=== PATIENT | male | born 1995 | race Caucasian/White ===

== ENCOUNTER 2021-01-24 00:05 | Emergency (ER) | payer OTHER, SELFPAY ==
--- NOTE | ~2021-01-24 | XR_ITS ---
EXAMINATION: XR HAND, LEFT CLINICAL INFORMATION: Crush injury COMPARISON: 05/15/2014 TECHNIQUE: 3 views of the left hand. FINDINGS: Osseous alignment is anatomic. No acute fracture is seen. No significant focal soft tissue abnormality identified. XR/XR hand wrist LT IMPRESSION: No acute findings identified.
[2021-01-24 00:45] VITALS: BP 119/68; PULSE 67; RESP 16; TEMP 37; O2SAT 99; BMI 26.9
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
== END 2021-01-24 01:56 | disposition home or self-care (01) ==
PROVIDERS: Emergency Provider Emergency Medicine; PCP Internal Medicine
DX: S67.22XA Crushing injury of left hand, initial encounter (principal); M79.642 Pain in left hand; M25.532 Pain in left wrist; Y29.XXXA Contact with blunt object, undetermined intent, initial encounter; Y93.9 Activity, unspecified; Y92.9 Unspecified place or not applicable; Y99.0 Civilian activity done for income or pay
CPT/HCPCS: 73110; 73130; 99283

== ENCOUNTER → 2021-01-27 11:34 | Outpatient (BNVA) | payer OTHER, SELFPAY | PROVIDERS: PCP Internal Medicine; Visit Provider Physician Assistant | DX: S60.212A Contusion of left wrist, initial encounter (principal); V89.0XXA Person injured in unspecified motor-vehicle accident, nontraffic, initial encounter | CPT/HCPCS: 73110; 99203 ==

== ENCOUNTER → 2021-01-30 08:44 | Outpatient (BNVA) | payer OTHER, SELFPAY | PROVIDERS: PCP Internal Medicine; Visit Provider Physician Assistant Medical | DX: S60.212A Contusion of left wrist, initial encounter (principal); V89.2XXA Person injured in unspecified motor-vehicle accident, traffic, initial encounter | CPT/HCPCS: 99213 ==

== ENCOUNTER 2023-08-07 10:33 | Emergency (ER) | payer OTHER, SELFPAY ==
--- NOTE | ~2023-08-07 | XR_ITS ---
EXAMINATION: XR KNEE, RIGHT CLINICAL INFORMATION: Fall COMPARISON: None available. TECHNIQUE: Four views of the right knee. FINDINGS: No fracture or joint effusion. Alignment is anatomic. Joint spaces are maintained. No abnormal soft tissue calcification. XR/XR knee RT 3V IMPRESSION: Normal right knee.
[2023-08-07 10:40] VITALS: BP 143/98; PULSE 78; RESP 16; TEMP 36.6; O2SAT 96; BMI 29.4
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
[2023-08-07 11:18] LABS: MANUAL DIFF FLAG NO
[2023-08-07 11:20] LABS: Basophils Percent Auto 0.6 % (0-2); Eosinophils Absolute Auto 0.2 X10*3/uL (0.0-0.4); Eosinophils Percent Auto 2.2 % (0-4); Hematocrit 46.1 % (42.0-52.0); Hemoglobin 16.5 g/dl (14.0-18.0); Imm Gran Abs Auto 0.01 X10*3/uL (0.00-0.03); Imm Gran Pct Auto 0.1 % (0.0-0.4); Lymphocytes Absolute Auto 1.3 X10*3/uL (1.2-4.9); Lymphocytes Percent Auto 18.4 % (20-40); Mean Corpuscular HGB Conc 35.8 g/dl (31.0-36.0); Mean Corpuscular Hemoglobin 29.6 pg (27.0-33.0); Mean Corpuscular Volume 82.8 fL (80.0-98.0); Monocytes Absolute Auto 0.5 X10*3/uL (0.1-1.2); Monocytes Percent Auto 7.1 % (2-11); Neutrophils Absolute Auto 5.2 x10*3/uL (2.0-8.3); Neutrophils Percent Auto 71.6 % (45-73); Platelet Count 190 X10*3/uL (160-400); Red Blood Count 5.57 X10*6/uL (4.60-5.80); Red Cell Distribution Width 12.9 % (11.0-16.0); White Blood Count 7.2 X10*3/uL (4.8-10.8)
[2023-08-07 11:45] LABS: Alanine Aminotransferase 40 U/L (0-40); Albumin Level 4.7 g/dL (3.5-5.0); Alkaline Phosphatase 55 U/L (39-117); Anion Gap 15 (12-20); Aspartate Amino Transferase 33 U/L (5-37); Bilirubin Direct 0.3 mg/dL (0.0-0.5); Bilirubin Total 0.7 mg/dL (0.0-1.0); Blood Urea Nitrogen 13 mg/dL (9-16); Calcium 9.4 mg/dL (8.4-10.2); Carbon Dioxide 21 mmol/L (22-29); Chloride 109 mmol/L (96-108); Creatinine Clr Calc Pharmacy 169.3; Estimated Glomerular Filt Rate > 60; Glucose Random 97 mg/dL (60-115); Sodium 141 mmol/L (135-145); Total Protein 7.5 g/dL (6.5-8.0)
[2023-08-07] MEDS: Bacitracin Oint 0.9 GM PACKET 1 APPL TOPICAL (11:47)
[2023-08-07 12:06] LABS: HBS Num1 4.72 mIU/mL (0-7.99); HBc Num1 0.07 S/CO (0.00-0.79); HBsAGNum1 0.45 S/CO (0.00-0.99); HIV AB/AG Nonreactive (Nonreactive); HIV Num 1 0.05 S/CO (0.00-0.99); Hepatitis B Core Antibody Nonreactive (Nonreactive); Hepatitis B Surface Antigen Negative (Negative); ~HepC Num1 0.05 S/CO (0.00-0.79); ~Hepatitis B Surface Antibody NONREACTIVE (Nonreactive); ~Hepatitis C Antibody Nonreactive (Nonreactive)
== END 2023-08-07 12:10 | disposition home or self-care (01) ==
PROVIDERS: Physician Assistant; Emergency Provider Student in an Organized Health Care Education/Training Program; PCP Internal Medicine
DX: S89.91XA Unspecified injury of right lower leg, initial encounter (principal); S60.511A Abrasion of right hand, initial encounter; Y35.891A Legal intervention involving other specified means, law enforcement official injured, initial encounter; Y93.89 Activity, other specified; Y92.239 Unspecified place in hospital as the place of occurrence of the external cause; Y99.0 Civilian activity done for income or pay
CPT/HCPCS: 36415; 73562; 80048; 80076; 85025; 86704; 86706; 86803; 87340; 87389; 99282; 99283

== ENCOUNTER → 2023-08-09 07:56 | Outpatient (BNVA) | payer OTHER, SELFPAY | PROVIDERS: PCP Internal Medicine; Visit Provider Internal Medicine | DX: S83.91XA Sprain of unspecified site of right knee, initial encounter (principal); S83.92XA Sprain of unspecified site of left knee, initial encounter; S60.512A Abrasion of left hand, initial encounter; S60.511A Abrasion of right hand, initial encounter; W01.0XXA Fall on same level from slipping, tripping and stumbling without subsequent striking against object, initial encounter | CPT/HCPCS: 99203 ==

== ENCOUNTER → 2023-08-13 10:06 | Outpatient (BNVA) | payer OTHER, SELFPAY | PROVIDERS: PCP Internal Medicine; Visit Provider Internal Medicine | DX: S80.211A Abrasion, right knee, initial encounter (principal); S80.212A Abrasion, left knee, initial encounter; Y35.811A Legal intervention involving manhandling, law enforcement official injured, initial encounter | CPT/HCPCS: 99213 ==

== ENCOUNTER → 2023-08-20 10:12 | Outpatient (BNVA) | payer OTHER, SELFPAY | PROVIDERS: PCP Internal Medicine; Visit Provider Internal Medicine | DX: S80.01XA Contusion of right knee, initial encounter (principal); S80.02XA Contusion of left knee, initial encounter; W01.0XXA Fall on same level from slipping, tripping and stumbling without subsequent striking against object, initial encounter | CPT/HCPCS: 99213 ==

== ENCOUNTER 2024-11-04 08:17 | Emergency (ER) | payer OTHER, SELFPAY ==
--- NOTE | ~2024-11-04 | XR_ITS ---
CLINICAL HISTORY: trauma pain 4 views cervical spine Comparison: None Findings: No fractures or listhesis. Odontoid and lateral masses intact. Normal facets Disc spaces are maintained. Unicinate and transverse processes intact. Lordotic curvature is straightened Normal bone mineralization. No widening of the retropharyngeal soft tissues. Lung apices unremarkable. Impression: 1. No fractures or listhesis. 2. Straightened cervical lordosis. This document has been electronically signed by: James Camacho MD on 11/04/2024 10:20:54
[2024-11-04 08:20] VITALS: BP 148/100; PULSE 68; RESP 18; TEMP 36.3; O2SAT 96; BMI 33.7
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
--- OUTSIDE RECORDS SUMMARY | 2024-11-04 08:33 | XMS_ITS | Encounter Summary ---
Author Organization [facility] Address [address] [place] [id number] Phone Care Team Providers Care Residential Instructor Name Role Phone Aldo Hawthorne MD Primary Care Provider [phone] Encounter Details Date Type Department Care Team (Late st Contact Info) Description 03/27/2011 Documentation EM Family Medicine [address] [place] [address] Family Medicine, Physician [address] [place], [place] [id number] Social History Tobacco Use Types Packs/Day Years Used Date Smoking Tobacco: Never Assessed Sex and Gender Information Value Date Recorded Sex Assigned at Not on file Legal Sex Male 4:50 PM EDT Gender Identity Not on file Sexual Orientation Not on file documented as of this encounter Plan of Treatment Not on file documented as of this encounter Visit Diagnoses Not on filedocumented in this encounter Care Teams Residential Instructor Relationship Specialty Start Date End Date Aldo Hawthorne MD [address] [place] [address] JOVANA Rodriguez [id number] PCP - General 02/12/17 10/13/22 documented as of this encounter
--- OUTSIDE RECORDS SUMMARY | 2024-11-04 08:33 | XMS_ITS ---
Author Organization [facility] Address [address] [place] [address] Care Team Providers Care Job Analysis Manager Name Role Phone Sal Huitron MD Primary Care Provider Vinnie Brooks Unavailable [phone] Allergies No Known Allergies REASON FOR VISIT Ingrown nail, Foot pain Medications Medication SIG (Take, Route, Fr equency, Duration) Notes Start Date End Date Status Azithromycin 250 MG [address] day, then 1 tablet daily for 4 days Orally Once a day for 5 day(s) 12/20/2013 Not-Taking Vicodin 5-300 MG 1-2 tablet as needed Orally every 6 hrs as needed for pain for 5 days 01/10/2015 Not-Taking Medical From: . . . Medical from wor k 02/17, 02/18, 02/19, and 02/20 due to minor foot surgery for 4 days 02/18/2024 Active Social History Tobacco Use: Social History Observation Description Date Details (start date - stop date) Never Smoker NA - NA Tobacco Use/Smoking Question Answer Notes Are you a: nonsmoker Additional Findings: Tobacco Non-User Current no n-smoker Alcohol Screen Question Answer Notes Did you have a drink contain ing alcohol in the past year? Yes How often did you have a dri nk containing alcohol in the past year? 2 to 3 times a week (3 points) Points 3 Interpretation Negative Tobacco use other than smoking: Question Answer Notes Are you an other tobacco user? No Vital Signs Height 6ft 2in in 02/18/2024 Weight 230 lbs 02/18/2024 BMI 29.53 kg/m2 02/18/2024 Procedures Procedure Date Ordered Date Performed Result Body Sit e 17596-[id number] 02/18/2024 N/A Encounters Encounter Location Date Provider Diagnosis [facility] [address] [place] [address] 02/18/2024 Vinnie Mckeon Ingrown nail L60.0 ; Pain in left foot M79.672 ; Pain in left ankle and joints of left foot M25.572 ; Bursitis of left foot M77.52 and Tailor's bunion of left foot M21.622 Assessments Encounter Date Diagnosis (ICD Code) Assessment Notes Treatment Notes Treatment Clinical Notes Section Notes 02/18/2024 Ingrown nail (ICD-10 - L60.0) 02/18/2024 Pain in left foot (ICD-10 - M79.672) 02/18/2024 Pain in left ankle and joints of left foot (ICD-10 - M25.572) 02/18/2024 Bursitis of left foot (ICD-10 - M77.52) 02/18/2024 Tailor's bunion of left foot (ICD-10 - M21.622) Plan Of Treatment Medication Medication Name Sig Start Date Stop Date Notes Medical From: . . . Medical from [facility] 02/17, 02/18, 02/19, and 02/20 due to minor foot surgery for 4 days 02/18/2024 Pending Test Test Name Order Date [id number] 02/18/2024 Next Appt Details Follow Up: 2-4 Weeks, Reason : Procedure Notes * Category Sub-Category Detail Notes Matricectomy (OP NOTE) Consent The patie nt was brought to the examination room and placed on the table in a supine position. The pre/uli/postoperative course, risks, complications and alternatives were discussed, understood and accepted by the patient. No guarantees were given regarding the surgical outcome Procedure A digital prep with alcohol or betadine was performed. 3cc of 1 percent Xylocaine Plain local anesthetic was administered to the toe via digital block utilizing aseptic technique. A digital touriquet was applied. The affected toenail portion was undermined, incised and resected to the eponychium and matrix. It was noted to be significantly incurvated and hypertrophied. The nailbed and matrix were curetted and the nail groove, bed and matrix were cauterized with Phenol, 3 applications of 30 seconds each from a cotton tip applicator, no underling bone was identified. The surrounding skin was protected from the Phenol with Bacitracin ointment. The tourniquet was released and capillary fill time was intact to the digit. A sterile Bacitracin dressing was applied Disposition Disposition: The pat ient tolerated the procedure and anesthesia well and left in good condition, alert, oriented and stable in no acute distress. Local wound care instructions were discussed and dispensed. There were no complications and the prognosis is favorable, Recommended alternating/staggering Tylenol XS 2 tabs and Motrin 600mg q 6 hrs ea for discomfort, Rx narcotic postop pain meds were deferred Location Lateral nail border , TA Progress Notes * Eliseo OROSCO EDOB:1995 (28 yo M)Acc No.[id number]:02/18/2024 Progress Notes Patient:?Eliseo Orosco Provider:?Vinnie Mckeon DPM :1995???Age:28 Y???Sex:Male Al e:02/18/2024 Address:[address] [place], [place] [id number] Pcp:Sal Huitron MD Subjective: * Chief Complaints: * ???Ingrown nailFoot pain * HPI: ???Foot Pain:?Location:?Outside, Bottom, Forefoot, LEFT.?Duration:?several weeks.?Course:?worse.?Aggravated:?any pressure, standing, walking.?Treatments:?rest/alter normal daily activity.? * ROS:?General/Constitutional:?Nausea?denies.?Vomiting?denies.?Hunger Thirst?denies.?Loss appetite?denies.?Chills?denies.?Fatigue?denies.?Fever?denies.?Night Sweats?denies.?Unexplained weight loss?denies.?Unexplained weight gain?denies.?HEENTM:?Dentures?denies.?Dizziness?denies.?Glasses/contacts?denies.?Retinopathy?de nies.?Blurred/double vision?denies.?TMJ?denies.?Discharge/drainage?denies.?Implants?denies.?Sore throat?denies.?Dental implants?denies.?Hard of hearing ?denies.?Difficulty chewing/swallowing/speaking?denies.?Nose bleeds?denies.?Sore mouth?denies.?Respiratory:?On Oxygen?denies.?Pneumonia/pleurisy?denies.?Bronchitis?denies.?Emphysema?denies.?C oughing?denies.?Cough blood?denies.?Shortness of breath?denies.?Wheezing?denies.?Cardiovascular:?Pacemaker?denies.?MVP?denies.?WPW?denies.?CHF?denies.?Heart attack?denies.?Septal defect?denies.?Rapid beat?denies.?Chest pain ?denies.?Atrial Fib.?denies.?Murmur/Palpitations?denies.?Gastrointestinal:?Hemorrhoids?denies.?Stomach/Abdominal pain?denies.?Dark blood stool?denies.?Irritable bowel ?denies.?Constipation?denies.?Diarrhea?denies.?Hematology:?Swelling?denies.?Clots?denies.?Varicose Veins?denies.?Bruising?denies.?Bleeding problem?denies.?Genitourinary:?Blood urine?denies.?Frequent/Painfu/urination/bladder control?denies.?Kidney stones?denies.?Infection (UTI)?denies.?Nephropathy?denies.?sex trans dis (STD)?denies.?Prostate?denies.?Musculoskeletal:?Hammertoes?denies.?Bunions?denies.?Back Pain?denies.?Muscle Cramps/ Resting?denies.?Muscle cramps / walking?denies.?Generalized aches and pains?denies.?Weakness?denies.?Integ.:?Glez?denies.?Scars?denies.?Corns/calluses?denies.?Ingrown nails?admits.?Painful nails?denies.?Open Sores?denies.?Rashes?denies.?Neurologic:?Difficulty sleeping?denies.?Brain disorder?denies.?Numbness?denies.?Balance trouble?denies.?Confusion?denies.?Fainting/blackouts?denies.?Tingling?denies.?Tr emors?denies.? * Medical History:? * Surgical History:?Denies Pas t Surgical History * Hospitalization/Major Diagno stic Procedure:?Denies Past Hospitalization * Family History:?Mother: aliv e, poor circulation, cancer, diagnosed with Other malignant neoplasm of unspecified site, Other specified conditions influencing health status.?Father: alive, cancer, diagnosed with Other malignant neoplasm of unspecified site.?Paternal Grand Mother: cancer, diagnosed with Other malignant neoplasm of unspecified site.?Maternal Grand Mother: heart attack, diagnosed with Unspecified heart disease.?Maternal Grand Father: heart attack, diagnosed with Unspecified heart disease.?Maternal aunt: cancer.?Maternal uncle: heart attack.? No children. * Social History:?Tobacco Use:?Tobacco Use/Smoking?Are you a:?nonsmoker ?Additional Findings: Tobacco Non-User?Current non-smoker ?Tobacco use other than smoking?Are you an other tobacco user??No ???Drugs/Alcohol:?Drugs?Have you used drugs other than those for medical reasons in the past 12 months??No ?Alcohol Screen?Did you have a drink containing alcohol in the past year??Yes ?How often did you have a drink containing alcohol in the past year??2 to 3 times a week (3 points) ?Points?3 ?Interpretation?Negative ???Miscellaneous:?Caffeine: yes, 1-2 cups per day. ?no Children. ?Exercise: yes, running, golf. ?Marital status: . 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 * Medications:?Not-Taking/PRNV icodin 5-300 MG Tablet 1-2 tablet as needed Orally every 6 hrs as needed for painAzithromycin 250 MG Tablet 2 tablets on the first day, then 1 tablet daily for 4 days Orally Once a dayMedication List reviewed and reconciled with the patientNot-Taking/PRN Vicodin 5-300 MG Tablet 1-2 tablet as needed Orally every 6 hrs as needed for painNot-Taking/PRN Azithromycin 250 MG Tablet 2 tablets on the first day, then 1 tablet daily for 4 days Orally Once a dayMedication List reviewed and reconciled with the patient * Allergies:?N.K.D.A.yes[Aller gies Verified] Objective: * Vitals:?Ht: 6ft 2in, Wt:230, BMI:29.53, Shoe size: 11, Ht-cm: 187.96 cm, Wt-k.33 kg. * Examination: ???Ingrown Nail: ?INSPECTION:?Reveals incurvation, pain on palpation, groove hypertrophy , Lateral nail border , TA.?Orthopedic: ?MUSCLE STRENGTH:?5/5 all groups in a symmetrical fashion , B/L.?TAILOR'S BUNION:?Prominent, painful, with?inflammation present,?5th MTH/MPJ, LEFT.?Neurological: ?SENSORY:?Neurological exam reveals intact sensorium, pain sensation normal, vibration sensation intact, pinprick sensation is normal in the lower extremities, Pt denies, anesthesia, burning, paresthesia, tingling, B/L.?TINEL'S COMPRESSION:? Negative, Lateral sural nerve distribution, Left.?DEEP TENDON REFLEXES:?Achilles, 2/4, B/L.?Neuroma Pain: ?PALPATION:?No interspace pain noted on palpation.?General Examination: ?GENERAL APPEARANCE:?Reveals a pleasant, alert, well-nourished, well- developed, well hydrated individual, who demonstrates proper attention to hygiene/body habitus, and is in no acute distress, Pt serves as own?historian for office visit today.?ORIENTED:?person, place, and time.?Vascular: ?DP PULSES:?3/4, B/L.?PT PULSES:?3/4, B/L.?CAPILLARY FILL TIME:?immediate, all digits, B/L.?SKIN TEMPERTURE GRADIENT OF THE LOWER EXTERMITIES:?warm to cool, proximal to distal, B/L.?HAIR GROWTH/TEXTURE/ELASTICITY/TURGOR:?normal, B/L.?PIGMENTATION:?normal, B/L.?EDEMA:?absent, B/L.?Dermatologic: ?SKIN FINDINGS:?Skin exam reveals normal texture, elasticity, and turgor. There are no masses. The interspaces are clear.? Assessment: * Assessment: 1.?Pain in left foot - M79.6 72?2.?Ingrown nail - L60.0 (Primary), Lateral nail border , TA?3.?Pain in left ankle and joints of left foot - M25.572?4.?Bursitis of left foot - M77.52?5.?Tailor's bunion of left foot - M21.622, Acute problem, Uncomplicated (3)? Plan: * Treatment: 2.?Others? Start Medical From: ., ., ., ., Medical from work 02/17, 02/18, 02/19, and 02/20 due to minor foot surgery, 4 days, 1, Refills 0.?? * Procedures:?Matricectomy (OP NOTE):?Location?Lateral nail border?,?TA.?Consent?The patient was brought to the examination room and placed on the table in a supine position. The pre/uli/postoperative course, risks, complications and alternatives were discussed, understood and accepted by the patient. No guarantees were given regarding the surgical outcome.?Procedure?A digital prep with alcohol or betadine was performed. 3cc of 1 percent ?Xylocaine Plain local anesthetic was administered to the toe via digital block utilizing aseptic technique. A digital touriquet was applied. The affected toenail portion was undermined, incised and resected to the eponychium and matrix. It was noted to be significantly incurvated and hypertrophied. The nailbed and matrix were curetted and the nail groove, bed and matrix were cauterized with Phenol, 3 applications of 30 seconds each from a cotton tip applicator, no underling bone was identified. The surrounding skin was protected from the Phenol with Bacitracin ointment. The tourniquet was released and capillary fill time was intact to the digit. A sterile Bacitracin dressing was applied .?Disposition?Disposition: The patient tolerated the procedure and anesthesia well and left in good condition, alert, oriented and stable in no acute distress. Local wound care instructions were discussed and dispensed. There were no complications and the prognosis is favorable, Recommended alternating/staggering Tylenol XS 2 tabs and Motrin 600mg q 6 hrs ea for discomfort, Rx narcotic postop pain meds were deferred.? * Procedure Codes:?00954 REMOV AL OF NAIL BED, Modifiers: TA * Preventive Medicine:? ??Counseling:?Discussion:?-03: Office or other outpatient visit for the evaluation and management of a new patient, which required a medically appropriate history and/or examination and LOW level of DECISION MAKING for: 1 STABLE ACUTE UNCOMPLICATED PROBLEM, 2 OR MORE MINOR PROBLEMS, OR 1 STABLE CHRONIC PROBLEM, THAT POSE(S) A LOW RISK FOR MORBIDITY/MORTALITY. The visit on the day of the encounter encompassed interpreting the data and educating the patient as to the nature of their condition, treatment options available according to their individual PMH, meds, allergies, and overall health/living conditions, as well as any potential risks or complications that may occur from a failure to adhere to, and participate in, the recommended course of therapy. The discussion included a complete verbal, and/or written explanation of the examination results, any x-rays taken, the proposed diagnosis, and outline of the treatment plan. A schedule for future care needs was also explained. The patient verbalized an understanding of the instructions at this time and agreed to be an active participant in their treatment. If the patient should think of any questions or concerns after the visit, I have encouraged the patient to call the office.?Metatarsalgea:?I explained to the patient the possible etiologies of their Metatarsalgea Foot pain, including foot type/shoegear/activity level/exercise routine and the risks/benefits of all the different treatment options for pain including: No treatment at all, Rest, Ice, NSAIDs(only if well tolerated after meals), New/supportive Shoegear, Strappings and Tapings, Foot/Ankle AFO Bracing, Stretching exercises, Deep Tissue Massage, Arch support/shoe inserts, Custom orthoses, Topical analgesics including Aspercream/Voltaren gel, Physical Therapy, Cortisone injection therapy, EPAT/ESWT. Advantages and disadvantages of each option were discussed and the patients questions re: shoegear, custom vs prefabricated inserts, activity level, PO vs Topical medications (and their respective potential complications/drug interactions/side effects), and consistency in home treatment regimens for optimal success were answered to their verbally confirmed satisfaction.?Orthotics:?I explained to the patient the benefits of OT use. I explained that orthoses are medically necessary to decrease the foot pain through proper mechanical control, support of their foot, cushion the forefoot by supplementing the soft tissue, possibly delay of the progression of the Tailor bunion deformity, possibly prevent surgery.?P.R.I.C.E.:?The patient was counseled on the use of P.R.I.C.E. and NSAIDS (if well tolerated) to aid in the recovery from their painful condition.?Podiatric Surgery Counseling:?Surgical procedures to treat the patients foot problem were discussed. We reviewed the risks of the procedure (described below) vs not having the procedure (persistent pain, deformity, risk for skin ulceration/infection, loss of toe). We discussed the potential procedure complications including, but not limited to: pain, swelling, bleeding, scarring, numbness, infection, delayed/non healing, floppy/unstable/shorthened toe, recurrence, failure of the procedure, overcorrection leading to plantarflexed/downward positioned toe, recurrence, need for further surgery, as well as the possibility for loss of the toe itself. We discussed the use of IV/Local anesthesia, and the usual post-op course for healing. No guarentees were given. The patient verbally indicated a full understanding of the above conversation, and any other of their questions were answered to their satisfaction.?Shoe Gear Counseling:?The patient and I reviewed the types of shoes they should be wearing. My recommendation included obtaining a well-fitted shoe with a good supportive, non-foldable nor twistable sole, plenty of toe/room for the forefoot, and proper arch support. Based on todays examination, I recommended the patient look for new shoes, by having their feet professionally measured. We discussed that generally the best time of the day for a shoe fitting is the afternoon. Different shoes types and brands to best match the patients occupation and vocation were discussed. Specific brand selection will be up to the patient, their individual foot condition/deformities, and fit. The patient and I reviewed the standard new shoe break in period by wearing them for a few hours a day while checking for redness or sores as wear time is increased. The patient verbally confirmed to understanding the information discussed.? * Follow Up:?2-4 Weeks * Images: * Sign off status: Completed true * Provider:?Vinnie Mckeon DPM Date:?2023 Generated for Sidney cheney/Anamaria/Eliot on:?11/04/2024 08:32 AM EDT History and Physical Notes * HPI (History of Present Illness) Category Sub-Category Detail Notes Category Not es Foot Pain Location: Outside, Bottom, Forefoot, L EFT Duration: several weeks Course: worse Aggravated: any pressure, standi ng, walking Treatments: rest/alter normal da sandra activity Examination Category Sub-Category Detail Notes Category Not es Ingrown Nail INSPECTION: Reveals incurvat ion, pain on palpation, groove hypertrophy , Lateral nail border , TA Neuroma Pain PALPATION: No interspace pain noted on palpation Neurological SENSORY: Neurological exa m reveals intact sensorium, pain sensation normal, vibration sensation intact, pinprick sensation is normal in the lower extremities, Pt denies, anesthesia, burning, paresthesia, tingling, B/L TINEL'S COMPRESSION: Negative, Lateral s ural nerve distribution, Left DEEP TENDON REFLEXES: Achilles, 2/4, B/L Dermatologic SKIN FINDINGS: Skin exam reveal s normal texture, elasticity, and turgor. There are no masses. The interspaces are clear Orthopedic TAILOR'S BUNION: Prominent, pain ful, with inflammation present, 5th MTH/MPJ, LEFT MUSCLE STRENGTH: 5/5 all groups in a symmetrical fashion , B/L General Examination GENERAL APPEARANCE: Reveals a pleasant, alert, well- nourished, well-developed, well hydrated individual, who demonstrates proper attention to hygiene/body habitus, and is in no acute distress, Pt serves as own historian for office visit today ORIENTED: person, place, and t janey Vascular DP PULSES (B): 3/4, B/L PT PULSES (B): 3/4, B/L CAPILLARY FILL TIME: immediate, all digi ts, B/L TEMPERTURE GRADIENT (C): warm to cool, p roximal to distal, B/L TROPHIC CONDITION-TEXTURE/ELASTICITY/TURGOR/HAIR GROWTH (B): normal, B/L EDEMA (C): absent, B/L PIGMENTATION: normal, B/L
--- OUTSIDE RECORDS SUMMARY | 2024-11-04 08:33 | XMS_ITS | Patient Health Record ---
Author Organization [facility] Address [address] [place] [address] Care Team Providers Care Air Export Operations Agent Name Role Phone Sal Huitron MD Primary Care Provider Vinnie Brooks Unavailable [phone] Allergies No Known Allergies Reason For Referral Diagnosis 1 Ingrowing nail (L60. 0) Diagnosis 2 Ulcer of Other Part of Foot (707.15) Diagnosis 3 Celluitis - Toes (68 1.10) Diagnosis 4 Paronychia (681.11) Diagnosis 5 Ulcer of Other Part of Foot (707.15) Diagnosis 6 Paronychia (681.11) Diagnosis 7 Celluitis - Toes (68 1.10) Diagnosis 8 Ingrowing nail (L60. 0) Referring Provider First Name Sal Referring Provider Last Name Elana [facility] Referred Provider Afshan Geronimo Referred Address [address] [facility],[place],[address], Referred Provider Specialty Podiatry Referral Priority Routine Diagnosis 1 Ingrowing nail (L60. 0) Diagnosis 2 Ulcer of Other Part of Foot (707.15) Diagnosis 3 Paronychia (681.11) Diagnosis 4 Celluitis - Toes (68 1.10) Diagnosis 5 Tailor's bunion of l eft foot (M21.622) Diagnosis 6 Bursitis of left aidee t (M77.52) Diagnosis 7 Pain in left ankle a nd joints of left foot (M25.572) Diagnosis 8 Pain in left foot (M 79.672) Referring Provider First Name Sal Referring Provider Last Name Elana Referred Organization [facility] Referred Provider Vinnie Mckeon Referred Address [address] [place] [id number] Referred Provider Specialty Podiatry Referral Priority Routine Medications Medication SIG (Take, Route, Fr equency, Duration) Notes Start Date End Date Status Vicodin 5-300 MG 1-2 tablet as needed Orally every 6 hrs as needed for pain for 5 days 01/10/2015 Not-Taking Medical From: . . . Medical from wor k 02/17, 02/18, 02/19, and 02/20 due to minor foot surgery for 4 days 02/18/2024 Active Azithromycin 250 MG 2 tablets on the day, then 1 tablet daily for 4 days Orally Once a day for 5 day(s) 12/20/2013 Not-Taking Social History Tobacco Use: Social History Observation [...] other tobacco user? No Vital Signs Height 6ft3in in 03/03/2024 Weight 235 lbs 03/03/2024 BMI 29.37 kg/m2 03/03/2024 Procedures Procedure Date Ordered Date Performed Result Body Sit e 18272-HXI 02/18/2024 N/A [id number] SKIN/TISSUE 03/03/2024 N/A Encounters Encounter Location Date [facility] [address] [place] [address] 02/18/2024 Vinnie Mckeon Ingrown nail L60.0 ; Pain in left foot M79.672 ; Pain in left ankle and joints of left foot M25.572 ; Bursitis of left foot M77.52 and Tailor's bunion of left foot M21.622 [facility] [address] [place] [address] 03/03/2024 Vinnie Mckeon Skin ulcer of toe of left foot with fat layer exposed L97.522 [facility] [address] [place] [address] 01/21/2024 Vinnie Mckeon Assessments Encounter Date Diagnosis (ICD Code) Assessment Notes Treatment Notes Treatment Clinical Notes Section Notes 02/18/2024 Pain in left foot (ICD-10 - M79.672) 02/18/2024 Ingrown nail (ICD-10 - L60.0) 03/03/2024 Skin ulcer of toe of left foot with fat layer exposed (ICD-10 - L97.522) Patient Educated with: WOUND CARE INSTRUCTIONS.p df (WOUND CARE INSTRUCTIONS.p df) 02/18/2024 Pain in left ankle and joints of left foot (ICD-10 - M25.572) 02/18/2024 Bursitis of left foot (ICD-10 - M77.52) 02/18/2024 Tailor's bunion of left foot (ICD-10 - M21.622) 03/03/2024 Other Plan Of Treatment Pending Test Test Name Order Date [id number] 05/01/2011 [id number] 10/08/2014 [id number] 01/10/2015 [id number] 02/18/2024 [id number] SKIN/TISSUE 03/03/2024 [id number] SKIN/TISSUE 01/31/2015 [id number] SKIN/TISSUE 10/24/2014 [id number] SKIN/TISSUE 05/19/2011 38744 I&D ABSCESS- SIMPLE,SINGLE 014 [id number] I&D ABSCESS- SIMPLE,SINGLE 014 Insurance Providers Payer Name Payer Address Payer Phone Subscriber Number Group Number Insured Name Patient Relationship to Insured Coverage Start Date Coverage End Date [facility] [address] [place] [address] [id number] [place] Self - patient is the insured Medical (General) History Medical History History ICD Code warts chicken pox covid-19 Surgical History Surgery Date(Month/Year)
--- OUTSIDE RECORDS SUMMARY | 2024-11-04 08:33 | XMS_ITS | Encounter Summary ---
Author Organization [facility] Address [address] [place] [address] Phone Care Team Providers Care Water Pollution Control Technician Name Role Phone Aldo Hawthorne MD Primary Care Provider [phone] Encounter Details Date Type Department Care Team (Late st Contact Info) Description 02/18/2017 Conversion Encounter [facility] [address] [place] [address] Social History Tobacco Use Types Packs/Day Years Used Date Smoking Tobacco: Never Comments:Never smoker Sex and Gender Information Value Date Recorded Sex Assigned at Not on file Legal Sex Male 4:50 PM EDT Gender Identity Not on file Sexual Orientation Not on file documented as of this encounter Plan of Treatment Not on file documented as of this encounter Visit Diagnoses Not on filedocumented in this encounter Care Teams Water Pollution Control Technician Relationship Specialty Start Date End Date Aldo Hawthorne MD [address] [place] [address] PCP - General 02/12/17 10/13/22 documented as of this encounter
--- OUTSIDE RECORDS SUMMARY | 2024-11-04 08:33 | XMS_ITS | Encounter Summary ---
Author Organization [facility] Address [address] [place] [address] Phone Care Team Providers Care Food Consultant Name Role Phone Aldo Hawthorne MD Primary Care Provider [phone] Encounter Details Date Type Department Care Team (Late st Contact Info) Description 02/26/2011 Documentation EM Family Medicine [address] [place] [address] Family Medicine, Physician [address] [place], [place] [phone] Social History Tobacco Use Types Packs/Day Years [...] on filedocumented in this encounter Care Teams Food Consultant Relationship Specialty Start Date End Date Aldo Hawthorne MD [address] [place] [address] JOVANA Rodriguez [id number] PCP - General 02/12/17 10/13/22 documented as of this encounter
--- OUTSIDE RECORDS SUMMARY | 2024-11-04 08:33 | XMS_ITS | Encounter Summary ---
Author Organization [facility] Address [address] [place] [address] Phone Care Team Providers Care Prison Librarian Name Role Phone Aldo Hawthorne MD Primary Care Provider [phone] Encounter Details Date Type Department Care Team (Late st Contact Info) Description 02/21/2010 Documentation EM Family Medicine [address] [place] [address] Family Medicine, Physician [address] [place], [place] [id number] Social History Tobacco Use Types Packs/Day Years [...] on filedocumented in this encounter Care Teams Prison Librarian Relationship Specialty Start Date End Date Aldo Hawthorne MD [address] [place] [address] JOVANA Rodriguez [id number] PCP - General 02/12/17 10/13/22 documented as of this encounter
--- OUTSIDE RECORDS SUMMARY | 2024-11-04 08:33 | XMS_ITS | Encounter Summary ---
Author Organization [facility] Address [address] [place] [address] Phone Care Team Providers Care Oil Changer Name Role Phone Aldo Hawthorne MD Primary Care Provider [phone] Encounter Details Date Type Department Care Team (Late st Contact Info) Description 02/25/2010 Documentation EM Family Medicine [address] [place] [address] Family Medicine, Physician [address] [place], [place] [phone] Social History Tobacco Use Types Packs/Day Years [...] on filedocumented in this encounter Care Teams Oil Changer Relationship Specialty Start Date End Date Aldo Hawthorne MD [address] [place] [address] JOVANA Rodriguez [phone] PCP - General 02/12/17 10/13/22 documented as of this encounter
--- OUTSIDE RECORDS SUMMARY | 2024-11-04 08:33 | XMS_ITS ---
[facility] Address [address] [place] [address] Care Team Providers Care Food Science Technician Name Role Phone Sal Huitron MD Primary Care Provider Vinnie Brooks Unavailable [phone] Allergies No Known Allergies REASON FOR VISIT Open sore - Toe Medications Medication SIG (Take, Route, Fr equency, [...] Additional Findings: Tobacco Non-User Current no n-smoker Tobacco use other than smoking: Question Answer Notes Are you an other tobacco user? No Vital Signs Height 6ft3in in 03/03/2024 Weight 235 lbs 03/03/2024 BMI 29.37 kg/m2 03/03/2024 Procedures Procedure Date Ordered Date Performed Result Body Sit e 62769-OZJWKCL SKIN/TISSUE 03/03/2024 N/A Encounters Encounter Location Date Provider Diagnosis [facility] [address] [place] [address] 03/03/2024 Vinnie Mckeon Skin ulcer of toe of left foot with fat layer exposed L97.522 Assessments Encounter Date Diagnosis (ICD Code) Assessment Notes Treatment Notes Treatment Clinical Notes Section Notes 03/03/2024 Skin ulcer of toe of left foot with fat layer exposed (ICD-10 - L97.522) Patient Educated with: WOUND CARE INSTRUCTIONS.p df (WOUND CARE INSTRUCTIONS.p df) 03/03/2024 Other Plan Of Treatment Treatment Notes Assessment Notes Skin ulcer of toe of left fo ot with fat layer exposed Patient Educated with: WOUND CARE INSTRUCTIONS.pdf (WOUND CARE INSTRUCTIONS.pdf) Pending Test Test Name Order Date [id number] SKIN/TISSUE 03/03/2024 Next Appt Details Follow Up: prn, Reason: Procedure Notes * Category Sub-Category Detail Notes Debride skin and subQ Open wound Physician of record performed open wound selective debridement of devitalized necrotic/nonviable soft tissue, fibrin, exudate, epidermis, dermis, thru skin and subcutaneous fat tissue, first 20 sq cm or less, using sharp dissection with sterile 15 blade, and/or tissue nippers. ANESTHESIA- was accomplished TOPICALLY with Lidocaine Hydrochloride Jelly 2 percent, Sterile antibiotic dressing applied. Hemostasis was controlled through direct pressure. Post debridement measurements: 12mm x 4mm x 3mm. Character of the wound post debriement is stable (96288) Progress Notes * Eliseo OROSCO EDOB:1995 (28 yo M)Acc No.[id number]:03/03/2024 Progress Notes Patient:?Eliseo Orosco Provider:?Vinnie Mckeon DPM :1995???Age:28 Y???Sex:Male Al e:03/03/2024 Address:[address] [place], [place] [address] [id number] Pcp:Sal Huitron MD Subjective: * Chief Complaints: * ???Open sore - Toe * HPI: ???Skin problems:?Nature:?Open sore.?Treatments:?Topical abx, soaks.? * ROS:?General/Constitutional:?Nausea?denies.?Vomiting?denies.?Hunger Thirst?denies.?Loss appetite?denies.?Chills?denies.?Fatigue?denies.?Fever?denies.?Night Sweats?denies.?Unexplained weight loss?denies.?Unexplained [...] than smoking?Are you an other tobacco user??No ???Miscellaneous:?Caffeine: yes, 1-2 cups per day. ?no Children. ?Exercise: yes, running, golf. ?Marital status: . 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 * Medications:?TakingMedical F rom: . . . . Medical from work 02/17, 02/18, 02/19, and 02/20 due to minor foot surgeryTaking Medical From: . . . . Medical from work 02/17, 02/18, 02/19, and 02/20 due to minor foot surgeryNot-Taking/PRNVicodin 5-300 MG Tablet 1- 2 tablet as needed Orally every 6 hrs [...] and reconciled with the patient * Allergies:?N.K.D.A.yes[Aller elayne Verified] Objective: * Vitals:?Ht: 6ft3in, Wt:235, BMI:29.37, Shoe size: 11, Ht-cm: 190.5 cm, Wt-k.59 kg. * Examination: ???Dermatologic: ?ULCER:? LOCATION, Dorsal, TA, SIZE, 11mm X 4mm X 2-3mm, BASE, fibro- granular, RIM, hyperkeratotic, UNDERMINING, mild, TRACKING, Sub Q with Fat layer exposed, DRAINAGE, serosanguineous, moderate, NECROTIC TISSUE, loosely-adherent, yellow slough, MALODOR, absent, CALOR, trace, ERYTHEMA, trace.? Assessment: * Assessment: 1.?Skin ulcer of toe of left foot with fat layer exposed - L97.522? Plan: * Treatment: * Procedures:?Debride skin and subQ:?Open wound?Physician of record performed open wound selective debridement of devitalized necrotic/nonviable soft tissue, fibrin, exudate, epidermis, dermis, thru skin and subcutaneous fat tissue, first 20 sq cm or less, using sharp dissection with sterile 15 blade, and/or tissue nippers. ANESTHESIA- was accomplished TOPICALLY with Lidocaine Hydrochloride Jelly 2 percent, Sterile antibiotic dressing applied. Hemostasis was controlled through direct pressure. Post debridement measurements: 12mm x 4mm x 3mm. Character of the wound post debriement is stable (61868).? * Procedure Codes:?90244 DEBRI DE SKIN/TISSUE * Preventive Medicine:? ??Counseling:?Ulcer:?A detailed plan of care was reviewed with the patient. We emphasized the fact that the patient takes on an active participating role in the treatment process and emphasized to them that they are an included, valued, and important member of the wound healing team in order to reach an expedient successful outcome. The patient agreed to follow their medically recommended diet while increasing their protein intake if safely able to do so, maintain proper bodily hydaration, abide by weight-bearing restrictions at all times, quit all current smoking habits if any, and diligently follow any/all dressing change instructions. It was clearly made known to the patient that if they fail to do their part, they will likely extend their course of treatment as well as possibly increase their risk of adverse events including amputation. The patient was instructed on importance of proper wound care consisting of pressure reduction, and proper maintainance of a moist wound environment. The patient is to cleanse the wound with warm soapy water/peroxide/saline, or betadine BID based on product availability. The patient is to apply ( Neosporin, Polysporin, or Triple, ) Antibiotic to the wound and cover with a DSD as directed. The patient was instructed to change dressings according to orders, or PRN saturation, leaks. The patient was instructed to monitor and report any signs or symptoms of infection or any untoward reactions. Precautions Taken: Offloading/Pressure reduction via rest/ limited activity to essential to daily life only, shoe modification, accommodative padding, sharp debridement, and take/apply medication as directed. THE GOALS of wound debridement to remove devitilized tissue, decrease risk for infection, promote wound healing and prevent further complication were discussed/reviewed. Debridement frequency as indicated, Given recent successful results to treatment, The patient is to cont the local wound care as directed till completely healed.? * Follow Up:?prn * Images: * Sign off status: Completed true * Provider:?Vinnie Mckeon DPM Date:?2023 Generated for Sidney cheney/Anamaria/Eliot on:?11/04/2024 08:32 AM EDT History and Physical Notes * HPI (History of Present Illness) Category Sub-Category Detail Notes Category Not es Skin problems Nature: Open sore Treatments: Topical abx, soaks Examination Category Sub-Category Detail Notes Category Not es Dermatologic ULCER: LOCATION, Dorsal , TA, SIZE, 11mm X 4mm X 2-3mm, BASE, fibro-granular, RIM, hyperkeratotic, UNDERMINING, mild, TRACKING, Sub Q with Fat layer exposed, DRAINAGE, serosanguineous, moderate, NECROTIC TISSUE, loosely-adherent, yellow slough, MALODOR, absent, CALOR, trace, ERYTHEMA, trace
--- OUTSIDE RECORDS SUMMARY | 2024-11-04 08:33 | XMS_ITS | Clinical Summary ---
Author Organization [facility] Address [address] [place] [address] Phone Care Team Providers Care Basket Sorter Name Role Phone Unavailable Primary Care Provider Unavailabl e Immunizations Immunization Administration Dates Next Due DTP 02/09/1995,1994,1994 DTaP 5 10/14/1999,06/13/1996 HPV, Quadrivalent 02/05/2012,04/27/2011,02/26/20 11 Hep B, ped/adol 04/15/1995,1994,1994 Hib (PRP-T) 10/14/1995, 5,1994, 995 IPV 10/14/1999 Influenza Split 03/09/2012,02/21/2010 Influenza, intranasal, trivalent 02/25/2011 MMR 10/08/1998,10/14/1995 Meningococcal Conj (Menactra) MCV4P 02/01/2007 OPV 02/09/1995,1994,1994 Tdap 02/01/2007 Family History Relation Name Status Comments Father Alive Father: skin ca ncer Maternal Grandfather Materna l grandfather: Myocardial infarction, Maternal Grandmother Materna l grandmother: Myocardial infarction, Mother Alive Mother: Lupus, Reynaud's Other Family history of Diabetes mellitus Paternal Grandfather Paterna l grandfather: Coronary artery disease, Sister 1 Alive Sister: Alive a nd well, Alive and well Sister 2 Alive Sister: Alive a nd well, Alive and well Social History Tobacco Use Types Packs/Day Years Used Date Smoking Tobacco: Never Comments:Never smoker Sex and Gender Information Value Date Recorded Sex Assigned at Not on file Legal Sex Male 4:50 PM EDT Gender Identity Not on file Sexual Orientation Not on file Last Filed Vital Signs Vital Sign Reading Time Taken Comments Blood Pressure 102/70 02/16/2013 12:00 AM EDT Pulse - - Temperature 36.2 ??C (97.2 ??F) 02/16/2013 12:00 AM E DT Respiratory Rate - - Oxygen Saturation - - Inhaled Oxygen Concentration - - Weight 78.5 kg (173 lb) 02/16/2013 12:00 AM EDT Height 188 cm (6' 2 ) 02/16/2013 12:00 AM EDT Body Mass Index 22.21 02/16/2013 12:00 AM EDT Plan of Treatment Health Maintenance Due Date Last Done Comments Varicella Vaccines (1 of 2 - 13+ 2-dose series) 03/25/2011 DTaP,Tdap,and Td Vaccines (7 - Td or Tdap) 02/01/2017 02/01/2007, 10/14/1999, 06/13/1996, Additional history exists Influenza Vaccines (#1) 2024 03/09/20, 02/25/2011, 02/21/2010 COVID-19 Vaccine ( season) 2024 Hepatitis B Vaccines Completed 04/15/1995, 1994, 1994 HIB Vaccines Completed 10/14/1995, 02/1995, 1994, Additional history exists MMR Vaccines Completed 10/08/1998, 10/14/1995 IPV Vaccines Completed 10/14/1999, 02/1995, 1994, Additional history exists Meningococcal Vaccine Aged Out 02/01/2007 No fred lona eligible based on patient's age to complete this topic HPV Vaccines Completed 02/05/2012, 04/05, 02/25/2011 Hepatitis A Vaccines Aged Out No long er eligible based on patient's age to complete this topic Men B Vaccine Aged Out No longer elig ible based on patient's age to complete this topic Pneumococcal Vaccine Aged Out No long er eligible based on patient's age to complete this topic
--- OUTSIDE RECORDS SUMMARY | 2024-11-04 08:33 | XMS_ITS | Encounter Summary ---
Author Organization [facility] Address [address] [place] [address] Phone Care Team Providers Care Fixed Assets Accountant Name Role Phone Aldo Hawthorne MD Primary Care Provider [phone] Encounter Details Date Type Department Care Team (Late st Contact Info) Description 02/21/2010 Documentation EM Family Medicine [address] [place] [address] Family Medicine, Physician [address] [place], [place] [phone] Social History Tobacco Use Types Packs/Day Years [...] on filedocumented in this encounter Care Teams Fixed Assets Accountant Relationship Specialty Start Date End Date Aldo Hawthorne MD [address] [place] [address] JOVANA Rodriguez [address] PCP - General 02/12/17 10/13/22 documented as of this encounter
--- OUTSIDE RECORDS SUMMARY | 2024-11-04 08:33 | XMS_ITS ---
Author Organization [facility] Address [address] [place] [address] Care Team Providers Care Laboratory Courier Name Role Phone Sal Huitron MD Primary Care Provider Vinnie Brooks Unavailable [phone] REASON FOR VISIT ON Encounters Encounter Location Date Provider Diagnosis [facility] [address] [place] [address] 01/21/2024 Vinnie Mckeon Plan Of Treatment No Information Progress Notes * Eliseo OROSCO EDOB:1995 (28 yo M)Acc No.[id number]:01/21/2024 Patient:?Eliseo Orosco :1995???Age:28 Y???Sex:Male Address:[address] [place], [address] * true * Date:? Generated for Printi noni/Anamaria/eTransmitting on:?11/04/2024 08:33 AM EDT
[2024-11-04] MEDS: NaPROXEN 500 MG TABLET PO (08:36)
--- NOTE | 2024-11-04 10:13 | PC.NURSE ---
Pt reports mild decrease in pain with meds gv; hot pack placed to posterior neck for comfort; awaiting xray results
[2024-11-04 10:17] VITALS: BP 135/96; PULSE 63; RESP 16; O2SAT 98
[2024-11-04 10:23] VITALS: BP 135/96; PULSE 63; RESP 16; TEMP 36.1; O2SAT 98
== END 2024-11-04 10:24 | disposition home or self-care (01) ==
PROVIDERS: Emergency Provider Emergency Medicine; PCP Internal Medicine
DX: S16.1XXA Strain of muscle, fascia and tendon at neck level, initial encounter (principal); Y35.891A Legal intervention involving other specified means, law enforcement official injured, initial encounter; Y93.89 Activity, other specified; Y92.410 Unspecified street and highway as the place of occurrence of the external cause; Y99.9 Unspecified external cause status
CPT/HCPCS: 72040; 99283; 99284

== ENCOUNTER → 2024-11-04 08:31 | Outpatient (BNV) | payer OTHER, SELFPAY | PROVIDERS: Emergency Provider Emergency Medicine; PCP Internal Medicine; Visit Provider Radiology Diagnostic Radiology | DX: M54.2 Cervicalgia (principal) | CPT/HCPCS: 72040 ==

== ENCOUNTER → 2024-11-06 12:26 | Outpatient (BNVA) | payer OTHER, SELFPAY | PROVIDERS: PCP Internal Medicine; Visit Provider Physician Assistant Medical | DX: Z09 Encounter for follow-up examination after completed treatment for conditions other than malignant neoplasm (principal); S16.1XXA Strain of muscle, fascia and tendon at neck level, initial encounter; Y35.891A Legal intervention involving other specified means, law enforcement official injured, initial encounter | CPT/HCPCS: 99202 ==

== ENCOUNTER → 2024-11-13 09:47 | Outpatient (BNVA) | payer OTHER, SELFPAY | PROVIDERS: PCP Internal Medicine; Visit Provider Physician Assistant Medical | DX: S16.1XXA Strain of muscle, fascia and tendon at neck level, initial encounter (principal); Y35.891A Legal intervention involving other specified means, law enforcement official injured, initial encounter; M54.12 Radiculopathy, cervical region | CPT/HCPCS: 99213 ==

== ENCOUNTER → 2024-12-04 09:56 | Outpatient (BNVA) | payer OTHER, SELFPAY | PROVIDERS: PCP Internal Medicine; Visit Provider Physician Assistant Medical | DX: M54.2 Cervicalgia (principal) | CPT/HCPCS: 99213 ==

== ENCOUNTER → 2024-12-25 10:28 | Outpatient (BNVA) | payer OTHER, SELFPAY | PROVIDERS: PCP Internal Medicine; Visit Provider Physician Assistant Medical | DX: S16.1XXA Strain of muscle, fascia and tendon at neck level, initial encounter (principal); Y35.891A Legal intervention involving other specified means, law enforcement official injured, initial encounter | CPT/HCPCS: 99213 ==

== ENCOUNTER 2024-12-29 10:56 | Outpatient (RCR) | payer OTHER, BC, SELFPAY ==
--- NOTE | 2024-11-22 12:19 | MHC.PT.EP ---
Addendum entered and electronically signed by Michael Godfrey, PT 11/22/24 12:24: STG ADDED : I HEP WITH DC EX PLAN LTG ADDED: IMPROVED NPDI ( SOC) Original Note: [facility] [place] Office [place] Office [place] Office [address] [place] [address] Dr Otoniel oNble [address] [facility] [phone] F: [phone] F: [phone] F: [phone] F: [phone] Physical Therapy Plan of Care Date of Evaluation: 11/22/24 Date of Surgery: NA Diagnosis: CERVICAL STRAIN Assessment: Pt IS 29 YO M FROM WITH CERVICAL STRAIN WHICH OCCURED WHEN 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 WENT TO ER (CERV XRAY, NEG FOR FX, +SPINE STRAIGHTENING) THEN WC. REFERRED TO PT. PRESENTS WITH DECREASED CERV ROM, DECREASED NEPHROLOGY SOCIAL WORKER STRENGTH L (R HANDED) AND PAIN. SHOULD BENEFIT FROM PT TO ADDRESS THESE ISSUES. 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 HAS BEEN OOW SINCE INCIDENT (11/03/24) Frequency and Duration: The patient will be seen 2X/WK X 4 WKS Short Term Goals: 1. INCREASED POSTURE AWARENESS AND AWARENESS NECK CARE 2. NO L UE PARESTHESIA Soup Mixer Goals: 1. INCREASED CERV ROM 10-15 DEGREES FOR MORE SYMMETRY 2. RTW 3. IMPROVED NEPHROLOGY SOCIAL WORKER STRENGTH L 4. DECREASED NECK PAIN AT LEAST 50% WITH ADLS (AUBRIE TYING SHOES) Treatment Plan: Modalities to reduce pain, spasms and effusion. Manual therapy to restore motion and function. Therapeutic exercise to improve strength and flexibility. Neuromuscular re-education for posture and balance. Therapeutic activities to return to functional activities of daily living. Electronically signed by: MICHAEL GODFREY PT Please sign and return to therapist. Thank you for your referral.
--- NOTE | 2025-03-13 16:06 | MHC.PT.DC ---
[facility] [place] Office [place] Office [place] [facility] [address] Otoniel Noble [address] [phone] F: [phone] F: [phone] F: [phone] F: [phone] Physical Therapy Discharge Report Diagnosis: CERVICAL STRAIN Date of Surgery: NA Date of Evaluation: 11/22/24 Date of Discharge: 03/13/25 Treatments to Date: 7 Cancellations to Date: No Shows to Date: Discharge Status: Improved Function Independent with HEP Recommend MD Follow-up Discharge Summary: PER ASSESSMENT FROM LAST PT SESSION BY [facility] DIRECT[facility] Pt independent w/HEP -C-spine AROM WFL's all mvts strength R=100# L=85# OF NOTE ADDM FROM THAT NOTE 12/22/24 addm:Pt CAME IN TODAY REPORTING TOLD BY WORK CONNECTION TO SCHEDULE MORE PT. Pt HAD BEEN DISCHARGED AT HIS LAST APPT. HAS ONE APPT LEFT PER AUTH HOWEVER HIS END DATE WAS 12/25. SPOKE WITH Pt EXPLAINED THE SITUATION, OFFERED HIM THE ABILITY TO HAVE SESSION WITHOUT AUTH (DEFERRED). Pt IS AWAITING EMG AND MRI. HE WILL CONTACT US AFTER HE GETS THE RESULTS. HE REPORTS OOW X 3 MORE WEEKS [ End ] Electronically signed by: MICHAEL ENCISO PT Please sign and return to therapist. Thank you for your referral.
== END 2025-03-13 16:07 | disposition home or self-care (01) ==
LOC: HO.PT 10:56
PROVIDERS: PCP Internal Medicine; Visit Provider Physician Assistant Medical
DX: S16.1XXD Strain of muscle, fascia and tendon at neck level, subsequent encounter (principal)
CPT/HCPCS: 97110; 97140; 97161; 97530; 97535

== ENCOUNTER → 2025-01-15 10:01 | Outpatient (BNVA) | payer OTHER, SELFPAY | PROVIDERS: PCP Internal Medicine; Visit Provider Physician Assistant Medical | DX: S16.1XXD Strain of muscle, fascia and tendon at neck level, subsequent encounter (principal); Y35.891D Legal intervention involving other specified means, law enforcement official injured, subsequent encounter | CPT/HCPCS: 99213 ==

== ENCOUNTER 2025-01-23 09:52 | Outpatient (REF) | payer OTHER, SELFPAY ==
--- NOTE | 2025-01-23 09:55 | EMG_ITS ---
Please see the attached neurophysiology report MTDD
--- OUTSIDE RECORDS SUMMARY | 2025-01-23 10:40 | XMS_ITS | Patient Health Record ---
Author Organization [facility] Address [address] [place] [address] Care Team Providers Care Senior Hydrogeologist Name Role Phone Sal Huitron MD Primary Care Provider Vinnie Brooks Unavailable [phone] Allergies No Known Allergies Reason For Referral [...] Sal Referring Provider Last Name Elana [facility] Referred Provider Vinnie Mckeon Referred Address [address] [facility],[place],[address], Referred Provider Specialty Podiatry Referral Priority Routine Medications Medication SIG (Take, Route, Fr equency, Duration) Notes Start Date End Date Status Vicodin 5-300 MG 1-2 tablet as needed Orally every 6 hrs as needed for pain; Duration: 5 days 01/10/2015 Nia-Humberto salas Medical From: . . . Medical from wor k 02/17, 02/18, 02/19, and 02/20 due to minor foot surgery; Duration: 4 days 02/18/2024 Active Azithromycin 250 MG [address] day, then 1 tablet daily for 4 days Orally Once a day; Duration: 5 day(s) 12/20/2013 Not-Taking Social History Tobacco [...] Ordered Date Performed Result Body Sit e 19434-TKY 02/18/2024 N/A [id number] SKIN/TISSUE 03/03/2024 N/A Encounters Encounter Location Date Provider Diagnosis [facility] [address] [address] 02/18/2024 Vinnie Linda Ingrown nail L60.0 ; Pain in left foot M79.672 ; Pain in left ankle and joints of left foot M25.572 ; Bursitis of left foot M77.52 and Tailor's bunion of left foot M21.[address] [facility] [address] 03/03/2024 Vinnie Linda Skin ulcer of toe of left foot [...] Treatment Pending Test Test Name Order Date [id number] 05/01/2011 [id number] 10/08/2014 [id number] 01/10/2015 [id number] 02/18/2024 [id number] SKIN/TISSUE 03/03/2024 [id number] SKIN/TISSUE 01/31/2015 [id number] SKIN/TISSUE 10/24/2014 [id number] SKIN/TISSUE 05/19/2011 55761 I&D ABSCESS- SIMPLE,SINGLE 014 [id number] I&D ABSCESS- SIMPLE,SINGLE 014 Insurance Providers Payer Name Payer Address Payer Phone Subscriber Number Group Number Insured Name Patient Relationship to Insured Coverage Start Date Coverage End Date [facility] [address] [place] [address] [id number] [place] Self - patient is the insured Medical (General) History Medical History History ICD Code warts chicken pox covid-19 Surgical History Surgery Date(Month/Year)
--- OUTSIDE RECORDS SUMMARY | 2025-01-23 10:40 | XMS_ITS | Clinical Summary ---
Author Organization [facility] Address [address] [place] [address] Phone Care Team Providers Care Facialist Name Role Phone Unavailable Primary Care Provider [...] AM EDT Pulse - - Temperature 36.2 C (97.2 F) 02/16/2013 12:00 AM EDT Respiratory Rate - - Oxygen Saturation - [...] 02/01/2017 02/01/2007, 10/14/1999, 06/13/1996, Additional history exists COVID-19 Vaccine (2023- season) 2024 Influenza Vaccines (#1) 2025 03/09/20, 02/25/2011, 02/21/2010 Hepatitis B Vaccines Completed 04/15/1995, 1994, 1994 [...]
== END 2025-01-23 09:53 | disposition home or self-care (01) ==
LOC: HO.NEURO 09:52
PROVIDERS: PCP Internal Medicine; Visit Provider Physician Assistant Medical
DX: S13.4XXA Sprain of ligaments of cervical spine, initial encounter (principal); M79.602 Pain in left arm; R20.2 Paresthesia of skin
CPT/HCPCS: 95886; 95910

== ENCOUNTER → 2025-01-23 09:55 | Outpatient (BNV) | payer OTHER, SELFPAY | PROVIDERS: PCP Internal Medicine; Visit Provider Psychiatry & Neurology Neurology | DX: G56.02 Carpal tunnel syndrome, left upper limb (principal); G56.22 Lesion of ulnar nerve, left upper limb | CPT/HCPCS: 95886; 95910 ==

== ENCOUNTER 2025-01-28 19:31 | Outpatient (REF) | payer OTHER, SELFPAY ==
--- NOTE | ~2025-01-28 | MR_ITS ---
CLINICAL HISTORY: PERSISTENT CERVICALGIA RADICULAR L ARM MR cervical spine without contrast Comparison: None provided Findings: The alignment of the cervical spine is normal. Bone marrow signal is normal. No fracture is seen. Spinal cord is of normal caliber and signal intensity. C2-3: The disc is normal in configuration. There is no central canal or neuroforaminal stenosis. C3-4: Disc is normal in configuration. There is no central canal or neuroforaminal stenosis. C4-5: The disc is normal in configuration. There is no central canal or neuroforaminal stenosis. C5-6: There is a small disc bulge slightly asymmetric to the left. There is minimal central canal stenosis. There is mild to moderate right neuroforaminal stenosis due to uncovertebral joint hypertrophy. C6-7: There is a disc bulge slightly asymmetric to the right. There is mild central canal stenosis. There is no neuroforaminal stenosis. C7-T1: The disc is normal in configuration. There is no central canal or neuroforaminal stenosis. IMPRESSION: 1. No acute findings. 2. Mild degenerative changes at C5-6 and C6-7 as above. This document has been electronically signed by: Blayne Chao MD on 01/30/2025 05:08:20
== END 2025-01-28 19:32 | disposition home or self-care (01) ==
LOC: HO.MRI 19:31
PROVIDERS: Visit Provider Internal Medicine
DX: M54.2 Cervicalgia (principal)
CPT/HCPCS: 72141

== ENCOUNTER → 2025-01-28 20:32 | Outpatient (BNV) | payer OTHER, SELFPAY | PROVIDERS: Visit Provider Radiology Diagnostic Radiology | DX: M50.322 Other cervical disc degeneration at C5-C6 level (principal) | CPT/HCPCS: 72141 ==

== ENCOUNTER → 2025-02-07 09:27 | Outpatient (BNVA) | payer OTHER, SELFPAY | PROVIDERS: Visit Provider Physician Assistant Medical | DX: S16.1XXD Strain of muscle, fascia and tendon at neck level, subsequent encounter (principal); W03.XXXD Other fall on same level due to collision with another person, subsequent encounter; Y35.891D Legal intervention involving other specified means, law enforcement official injured, subsequent encounter | CPT/HCPCS: 99213 ==

== ENCOUNTER → 2025-02-28 09:30 | Outpatient (BNVA) | payer OTHER, SELFPAY | PROVIDERS: Visit Provider Physician Assistant Medical | DX: S16.1XXD Strain of muscle, fascia and tendon at neck level, subsequent encounter (principal); Y35.891D Legal intervention involving other specified means, law enforcement official injured, subsequent encounter | CPT/HCPCS: 99213 ==

== ENCOUNTER → 2025-03-15 09:27 | Outpatient (BNVA) | payer OTHER, SELFPAY | PROVIDERS: Visit Provider Emergency Medicine | DX: M54.2 Cervicalgia (principal); G56.92 Unspecified mononeuropathy of left upper limb | CPT/HCPCS: 99215 ==

== ENCOUNTER → 2025-04-03 09:00 | Outpatient (BNVA) | payer OTHER, SELFPAY | PROVIDERS: Visit Provider Emergency Medicine | DX: M54.2 Cervicalgia (principal); G56.92 Unspecified mononeuropathy of left upper limb | CPT/HCPCS: 99213 ==

== ENCOUNTER 2025-04-06 09:51 | Outpatient (AMB) | payer OTHER, SELFPAY ==
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
[2025-04-06 10:18] VITALS: BMI 26.9
--- OUTSIDE RECORDS SUMMARY | 2025-04-06 10:31 | XMS_ITS | Encounter Summary ---
Author Organization [facility] Address [address] [place] [address] Phone Care Team Providers Care Women Specialist Name Role Phone Aldo Hawthorne MD Primary Care Provider [phone] Encounter Details Date Type Department Care Team (Late st Contact Info) Description 02/26/2011 Documentation EM Family Medicine [address] [place] [address] Family Medicine, Physician [address] [place], [place] [phone] Social History Tobacco Use Types Packs/Day Years [...] on filedocumented in this encounter Care Teams Women Specialist Relationship Specialty Start Date End Date Aldo Hawthorne MD [address] [place] [address] JOVANA Rodriguez [phone] PCP - General 02/12/17 10/13/22 documented as of this encounter
--- OUTSIDE RECORDS SUMMARY | 2025-04-06 10:31 | XMS_ITS | Clinical Summary ---
Author Organization [facility] Address [address] [place] [address] Phone Care Team Providers Care Learning And Development Specialist Name Role Phone Unavailable Primary Care Provider [...] 06/13/1996, Additional history exists Influenza Vaccines (#1) 2025 03/09/20 12, 02/25/2011, 02/21/2010 COVID-19 Vaccine (2024- season) 2025 Hepatitis B Vaccines Completed 04/15/1995, 1994, 1994 [...]
--- OUTSIDE RECORDS SUMMARY | 2025-04-06 10:31 | XMS_ITS | Encounter Summary ---
Author Organization [facility] Address [address] [place] [address] Phone Care Team Providers Care Telegraph Office Manager Name Role Phone Aldo Hawthorne MD Primary Care Provider [phone] Encounter Details Date Type Department Care Team (Late st Contact Info) Description 02/21/2010 Documentation EM Family Medicine [address] [place] [address] Family Medicine, Physician [address] [place], [place] [phone] Social History Tobacco Use Types Packs/Day Years [...] on filedocumented in this encounter Care Teams Telegraph Office Manager Relationship Specialty Start Date End Date Aldo Hawthorne MD [address] [place] [address] JOVANA Rodriguez [phone] PCP - General 02/12/17 10/13/22 documented as of this encounter
--- OUTSIDE RECORDS SUMMARY | 2025-04-06 10:31 | XMS_ITS | Encounter Summary ---
Author Organization [facility] Address [address] [place] [address] Phone Care Team Providers Care Keno Clerk Name Role Phone Aldo Hawthorne MD Primary Care Provider [phone] Encounter Details Date Type Department Care Team (Late st Contact Info) Description 02/18/2017 Conversion Encounter [facility] [place] [address] [place] [address] Social History Tobacco Use Types Packs/Day Years [...] on filedocumented in this encounter Care Teams Keno Clerk Relationship Specialty Start Date End Date Aldo Hawthorne MD [address] [place] [address] PCP - General 02/12/17 10/13/22 documented as of this encounter
--- OUTSIDE RECORDS SUMMARY | 2025-04-06 10:31 | XMS_ITS | Encounter Summary ---
Author Organization [facility] Address [address] [place] [address] Phone Care Team Providers Care Dormitory Keeper Name Role Phone Aldo Hawthorne MD Primary Care Provider [phone] Encounter Details Date Type Department Care Team (Late st Contact Info) Description 02/25/2010 Documentation EM Family Medicine [address] [place] [address] Family Medicine, Physician [address] [place], [place] [phone] Social History Tobacco Use Types Packs/Day Years [...] on filedocumented in this encounter Care Teams Dormitory Keeper Relationship Specialty Start Date End Date Aldo Hawthorne MD [address] [place] [address] JOVANA Rodriguez [phone] PCP - General 02/12/17 10/13/22 documented as of this encounter
--- OUTSIDE RECORDS SUMMARY | 2025-04-06 10:31 | XMS_ITS | Encounter Summary ---
Author Organization [facility] Address [address] [place] [address] Phone Care Team Providers Care Healthcare Management Name Role Phone Aldo Hawthorne MD Primary Care Provider [phone] Encounter Details Date Type Department Care Team (Late st Contact Info) Description 02/21/2010 Documentation EM Family Medicine [address] [place] [address] Family Medicine, Physician [address] [place], [place] [phone] Social History Tobacco Use Types Packs/Day Years [...] on filedocumented in this encounter Care Teams Healthcare Management Relationship Specialty Start Date End Date Aldo Hawthorne MD [address] [place] [address] JOVANA Rodriguez [phone] PCP - General 02/12/17 10/13/22 documented as of this encounter
--- OUTSIDE RECORDS SUMMARY | 2025-04-06 10:32 | XMS_ITS | Patient Health Record ---
Author Organization [facility] [place] Address [address] [place] [address] Care Team Providers Care Rn Patient Care Name Role Phone Sal Huitron MD Primary Care Provider Vinnie Brooks Unavailable [phone] Allergies No Known Allergies Reason For Referral No Information Medications Medication SIG (Take, Route, Fr equency, Duration) Notes Start Date End Date Status Vicodin 5-300 MG 1-2 tablet as needed Orally every 6 hrs as needed for pain; Duration: 5 days 01/10/2015 Not-Humberto salas Medical From: . . . Medical from [place] 02/17, 02/18, 02/19, and 02/20 due to [...] Are you an other tobacco user? No Plan Of Treatment Pending Test Test Name Order Date [id number] 05/01/2011 [id number] 10/08/2014 [id number] 01/10/2015 [id number] 02/18/2024 [id number] SKIN/TISSUE 03/03/2024 [id number] SKIN/TISSUE 01/31/2015 [id number] SKIN/TISSUE 10/24/2014 [id number] SKIN/TISSUE 05/19/2011 [id number] I&D ABSCESS- SIMPLE,SINGLE 014 [id number] I&D ABSCESS- SIMPLE,SINGLE 014 Insurance Providers Payer Name Payer Address Payer Phone Subscriber Number Group Number Insured Name Patient Relationship to Insured Coverage Start Date Coverage End Date [facility] [address] [place] [address] [id number] [place] Self - patient is the insured Medical (General) History Medical History History ICD Code warts chicken pox covid-19 Surgical History Surgery Date(Month/Year)
--- OUTSIDE RECORDS SUMMARY | 2025-04-06 10:32 | XMS_ITS | Encounter Summary ---
Author Organization [facility] Address [address] [place] [address] Phone Care Team Providers Care Mri Ct Tech Name Role Phone Aldo Hawthorne MD Primary Care Provider Encounter Details Date Type Department Care Team (Late st Contact Info) Description 03/27/2011 Documentation EM Family Medicine [address] [place] [address] Family Medicine, Physician [address] [place], [place] [phone] Social History Tobacco Use Types Packs/Day Years [...] on filedocumented in this encounter Care Teams Mri Ct Tech Relationship Specialty Start Date End Date Aldo Hawthorne MD [address] [place] [address] JOVANA Rodriguez [phone] PCP - General 02/12/17 10/13/22 documented as of this encounter
== END 2025-04-06 11:34 | disposition home or self-care (01) ==
LOC: HO.HOS 09:52
PROVIDERS: Visit Provider Physical Medicine & Rehabilitation
DX: M54.12 Radiculopathy, cervical region (principal); M50.20 Other cervical disc displacement, unspecified cervical region
CPT/HCPCS: 99204

== ENCOUNTER → 2025-04-06 09:51 | Outpatient (BNVA) | payer OTHER, SELFPAY | PROVIDERS: Visit Provider Physical Medicine & Rehabilitation | DX: M54.12 Radiculopathy, cervical region (principal); M50.20 Other cervical disc displacement, unspecified cervical region | CPT/HCPCS: 99202 ==

== ENCOUNTER 2025-04-09 10:30 | Outpatient (AMB) | payer OTHER, SELFPAY ==
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
[2025-04-09 10:33] VITALS: BP 130/84; PULSE 71; RESP 16; O2SAT 98; BMI 28.4
--- OUTSIDE RECORDS SUMMARY | 2025-04-09 12:25 | XMS_ITS | Encounter Summary ---
Author Organization [facility] Address [address] [place] [address] Phone Care Team Providers Care Cafeteria Attendant Name Role Phone Aldo Hawthorne MD Primary Care Provider [phone] Encounter Details Date Type Department Care Team (Late st Contact Info) Description 02/21/2010 Documentation EM Family Medicine [address] [place] [address] Family Medicine, Physician [address] [place], [place] [phone] Social History Tobacco Use Types Packs/Day Years [...] on filedocumented in this encounter Care Teams Cafeteria Attendant Relationship Specialty Start Date End Date Aldo Hawthorne MD [address] [place] [address] JOVANA Rodriguez [phone] PCP - General 02/12/17 10/13/22 documented as of this encounter
--- OUTSIDE RECORDS SUMMARY | 2025-04-09 12:25 | XMS_ITS | Encounter Summary ---
Author Organization [facility] Address [address] [place] [address] Phone Care Team Providers Care Drafter Cartographic Name Role Phone Aldo Hawthorne MD Primary Care Provider [phone] Encounter Details Date Type Department Care Team (Late st Contact Info) Description 03/27/2011 Documentation EM Family Medicine [address] [place] [address] Family Medicine, Physician [address] [place], [place] [phone] Social History Tobacco Use Types Packs/Day Years [...] on filedocumented in this encounter Care Teams Drafter Cartographic Relationship Specialty Start Date End Date Aldo Hawthorne MD [address] [place] [address] JOVANA Rodriguez [phone] PCP - General 02/12/17 10/13/22 documented as of this encounter
--- OUTSIDE RECORDS SUMMARY | 2025-04-09 12:25 | XMS_ITS | Encounter Summary ---
Author Organization [facility] Address [address] [place] [address] Phone Care Team Providers Care Job Estimator Name Role Phone Aldo Hawthorne MD Primary Care Provider [phone] Encounter Details Date Type Department Care Team (Late st Contact Info) Description 02/21/2010 Documentation EM Family Medicine [address] [place] [address] Family Medicine, Physician [address] [place], [place] [phone] Social History Tobacco Use Types Packs/Day Years [...] on filedocumented in this encounter Care Teams Job Estimator Relationship Specialty Start Date End Date Aldo Hawthorne MD [address] [place] [address] JOVANA Rodriguez [phone] PCP - General 02/12/17 10/13/22 documented as of this encounter
--- OUTSIDE RECORDS SUMMARY | 2025-04-09 12:25 | XMS_ITS | Clinical Summary ---
Author Organization [facility] Address [address] [place] [address] Phone Care Team Providers Care Produce Laborer Name Role Phone Unavailable Primary Care Provider [...]
--- OUTSIDE RECORDS SUMMARY | 2025-04-09 12:25 | XMS_ITS | Encounter Summary ---
Author Organization [facility] Address [address] [place] [address] Phone Care Team Providers Care Forestry Instructor Name Role Phone Aldo Hawthorne MD Primary Care Provider [phone] Encounter Details Date Type Department Care Team (Late st Contact Info) Description 02/25/2010 Documentation EM Family Medicine [address] [place] [address] Family Medicine, Physician [address] [place], [place] [phone] Social History Tobacco Use Types Packs/Day Years [...] on filedocumented in this encounter Care Teams Forestry Instructor Relationship Specialty Start Date End Date Aldo Hawthorne MD [address] [place] [address] JOVANA Rodriguez [phone] PCP - General 02/12/17 10/13/22 documented as of this encounter
--- OUTSIDE RECORDS SUMMARY | 2025-04-09 12:25 | XMS_ITS | Patient Health Record ---
Author Organization [facility] mariam Green[place] Address [address] [place] [address] Care Team Providers Care Steam Engineer Name Role Phone Sal Huitron MD Primary Care Provider Vinnie Brooks Unavailable [phone] Allergies No Known Allergies Reason For Referral No Information Medications Medication SIG (Take, Route, Fr equency, Duration) Notes Start Date End Date Status Vicodin 5-300 MG 1-2 tablet as needed Orally every 6 hrs as needed for pain; Duration: 5 days 01/10/2015 Not-Humberto salas Medical From: . . . Medical from [facility] 02/17, 02/18, 02/19, and 02/20 due to [...] Treatment Pending Test Test Name Order Date [id number] 01/10/2015 [id number] 02/18/2024 [id number] 10/08/2014 [id number] 05/01/2011 [id number] SKIN/TISSUE 03/03/2024 [id number] SKIN/TISSUE 10/24/2014 [id number] SKIN/TISSUE 01/31/2015 [id number] SKIN/TISSUE 05/19/2011 [id number] I&D ABSCESS- SIMPLE,SINGLE 014 [id number] I&D ABSCESS- SIMPLE,SINGLE 014 Insurance Providers Payer Name Payer Address Payer Phone Subscriber Number Group Number Insured Name Patient Relationship to Insured Coverage Start Date Coverage End Date [facility] [address] [place] [address] [id number] [place] Self - patient is the insured Medical (General) History Medical History History ICD Code warts chicken pox covid-19 Surgical History Surgery Date(Month/Year)
--- OUTSIDE RECORDS SUMMARY | 2025-04-09 12:25 | XMS_ITS | Encounter Summary ---
Author Organization [facility] Address [address] [place] [address] Phone Care Team Providers Care Insurance Claims Assistant Name Role Phone Aldo Hawthorne MD Primary Care Provider [phone] Encounter Details Date Type Department Care Team (Late st Contact Info) Description 02/18/2017 Conversion Encounter [facility] [address] [place] [address] Social History Tobacco Use Types Packs/Day Years [...] on filedocumented in this encounter Care Teams Insurance Claims Assistant Relationship Specialty Start Date End Date Aldo Hawthorne MD [address] [place] [address] PCP - General 02/12/17 10/13/22 documented as of this encounter
--- OUTSIDE RECORDS SUMMARY | 2025-04-09 12:25 | XMS_ITS | Encounter Summary ---
Author Organization [facility] Address [address] [place] [address] Phone Care Team Providers Care Drum Plater Name Role Phone Aldo Hawthorne MD Primary Care Provider [phone] Encounter Details Date Type Department Care Team (Late st Contact Info) Description 02/26/2011 Documentation EM Family Medicine [address] [place] [address] Family Medicine, Physician [address] [place], [place] [phone] Social History Tobacco Use Types Packs/Day Years [...] on filedocumented in this encounter Care Teams Drum Plater Relationship Specialty Start Date End Date Aldo Hawthorne MD [address] [place] [address] JOVANA Rodriguez [address] PCP - General 02/12/17 10/13/22 documented as of this encounter
== END 2025-04-09 10:59 | disposition home or self-care (01) ==
LOC: HO.PMC 10:30
PROVIDERS: Visit Provider Internal Medicine
DX: M54.12 Radiculopathy, cervical region (principal); M50.20 Other cervical disc displacement, unspecified cervical region; M54.2 Cervicalgia
CPT/HCPCS: 99203

== ENCOUNTER → 2025-04-09 10:30 | Outpatient (BNVA) | payer OTHER, SELFPAY | PROVIDERS: Visit Provider Internal Medicine | DX: M54.12 Radiculopathy, cervical region (principal); M50.222 Other cervical disc displacement at C5-C6 level; M50.223 Other cervical disc displacement at C6-C7 level | CPT/HCPCS: 99202 ==

== ENCOUNTER → 2025-04-11 14:58 | Outpatient (BNVA) | payer OTHER, SELFPAY | PROVIDERS: PCP Internal Medicine; Visit Provider Emergency Medicine | DX: M54.2 Cervicalgia (principal); G56.92 Unspecified mononeuropathy of left upper limb | CPT/HCPCS: 99214 ==

== ENCOUNTER → 2025-05-09 10:57 | Outpatient (BNVA) | payer OTHER, SELFPAY | PROVIDERS: PCP Internal Medicine; Visit Provider Emergency Medicine | DX: S46.812D Strain of other muscles, fascia and tendons at shoulder and upper arm level, left arm, subsequent encounter (principal); Y35.891D Legal intervention involving other specified means, law enforcement official injured, subsequent encounter; Z02.79 Encounter for issue of other medical certificate | CPT/HCPCS: 99213 ==

== ENCOUNTER 2025-06-22 11:10 | Outpatient (AMB) | payer OTHER, SELFPAY ==
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
[2025-06-22 11:16] VITALS: BMI 27.5
--- OUTSIDE RECORDS SUMMARY | 2025-06-22 13:09 | XMS_ITS | Encounter Summary ---
Author Organization [facility] Address [address] [place] [address] Phone Care Team Providers Care Aligning Inspector Name Role Phone Aldo Hawthorne MD Primary Care Provider [phone] Encounter Details Date Type Department Care Team (Late st Contact Info) Description 02/18/2017 Conversion Encounter [facility] [place] [address] [place] [address] Social History Tobacco Use Types Packs/Day Years [...] on filedocumented in this encounter Care Teams Aligning Inspector Relationship Specialty Start Date End Date Aldo Hawthorne MD [address] [place] [address] PCP - General 02/12/17 10/13/22 documented as of this encounter
--- OUTSIDE RECORDS SUMMARY | 2025-06-22 13:09 | XMS_ITS | Patient Health Record ---
Author Organization [facility] mariam [place] Address [address] [facility] [place] [address] Care Team Providers Care Mortgage Accounting Clerk Name Role Phone Sal Huitron MD Primary Care Provider Vinnie Brooks Unavailable [phone] Allergies No Known Allergies Reason For Referral No Information Medications Medication SIG (Take, Route, Fr equency, Duration) Notes Start Date End Date Status Vicodin 5-300 MG 1-2 tablet as needed Orally every 6 hrs as needed for pain; Duration: 5 days 01/10/2015 Not-Humberto salas Medical From: . . . Medical from [facility] 02/17, 02/18, 02/19, and 02/20 due [...] Treatment Pending Test Test Name Order Date [id number] 05/01/2011 [id number] 10/08/2014 [id number] 01/10/2015 [id number] 02/18/2024 [id number] SKIN/TISSUE 03/03/2024 [id number] SKIN/TISSUE 01/31/2015 [id number] SKIN/TISSUE 10/24/2014 [id number] SKIN/TISSUE 05/19/2011 [id number] I&D ABSCESS- SIMPLE,SINGLE 014 [id number] I&D ABSCESS- SIMPLE,SINGLE 014 Insurance Providers Payer Name Payer Address Payer Phone Subscriber Number Group Number Insured Name Patient Relationship to Insured Coverage Start Date Coverage End Date [facility] [address] [place] [address] [id number] [place] Self - patient is the insured Medical (General) History Medical History History ICD Code warts chicken pox covid-19 Surgical History Surgery Date(Month/Year)
--- OUTSIDE RECORDS SUMMARY | 2025-06-22 13:09 | XMS_ITS | Clinical Summary ---
Author Organization [facility] Address [address] [place] [address] Phone Care Team Providers Care Wireless Team Member Name Role Phone Unavailable Primary Care Provider [...]
--- OUTSIDE RECORDS SUMMARY | 2025-06-22 13:09 | XMS_ITS | Encounter Summary ---
Author Organization [facility] Address [address] [place] [address] Phone Care Team Providers Care Diesel Technician Name Role Phone Aldo Hawthorne MD Primary Care Provider [phone] Encounter Details Date Type Department Care Team (Late st Contact Info) Description 02/21/2010 Documentation EM Family Medicine [address] [place] [address] Family Medicine, Physician [address] [place], [place] [phone] Social History Tobacco Use Types Packs/Day Years [...] on filedocumented in this encounter Care Teams Diesel Technician Relationship Specialty Start Date End Date Aldo Hawthrone MD [address] [place] [address] JOVANA Rodriguez [id number] PCP - General 02/12/17 10/13/22 documented as of this encounter
--- OUTSIDE RECORDS SUMMARY | 2025-06-22 13:09 | XMS_ITS | Encounter Summary ---
Author Organization [facility] Address [address] [place] [address] Phone Care Team Providers Care Acetylene Cylinder Packing Mixer Name Role Phone Aldo Hawthorne MD Primary Care Provider [phone] Encounter Details Date Type Department Care Team (Late st Contact Info) Description 02/21/2010 Documentation EM Family Medicine [address] [place] [address] Family Medicine, Physician [address] [place], [place] [phone] Social History Tobacco Use Types Packs/Day Years [...] on filedocumented in this encounter Care Teams Acetylene Cylinder Packing Mixer Relationship Specialty Start Date End Date Aldo Hawthorne MD [address] [place] [address] JOVANA Rodriguez [address] PCP - General 02/12/17 10/13/22 documented as of this encounter
--- OUTSIDE RECORDS SUMMARY | 2025-06-22 13:09 | XMS_ITS | Encounter Summary ---
Author Organization [facility] Address [address] [place] [address] Phone Care Team Providers Care Ground Water Technician Name Role Phone Aldo Hawthorne MD Primary Care Provider [phone] Encounter Details Date Type Department Care Team (Late st Contact Info) Description 02/26/2011 Documentation EM Family Medicine [address] [place] [address] Family Medicine, Physician [address] [place], [place] [phone] Social History Tobacco Use Types Packs/Day Years [...] on filedocumented in this encounter Care Teams Ground Water Technician Relationship Specialty Start Date End Date Aldo Hawthorne MD [address] [place] [address] JOVANA Rodriguez [phone] PCP - General 02/12/17 10/13/22 documented as of this encounter
--- OUTSIDE RECORDS SUMMARY | 2025-06-22 13:09 | XMS_ITS | Encounter Summary ---
Author Organization [facility] Address [address] [place] [address] Phone Care Team Providers Care Tax Compliance Manager Name Role Phone Aldo Hawthorne MD Primary Care Provider Encounter Details Date Type Department Care Team (Late st Contact Info) Description 03/27/2011 Documentation EM Family Medicine [address] [place] [address] Family Medicine, Physician [address] [place], [place] [phone] Social History Tobacco Use Types Packs/Day Years [...] on filedocumented in this encounter Care Teams Tax Compliance Manager Relationship Specialty Start Date End Date Aldo Hawthorne MD [address] [place] [address] JOVANA Rodriguez [address] PCP - General 02/12/17 10/13/22 documented as of this encounter
--- OUTSIDE RECORDS SUMMARY | 2025-06-22 13:09 | XMS_ITS | Encounter Summary ---
Author Organization [facility] Address [address] [place] [address] Phone Care Team Providers Care Small Parts Shaper Operator Name Role Phone Aldo Hawthorne MD Primary Care Provider [phone] Encounter Details Date Type Department Care Team (Late st Contact Info) Description 02/25/2010 Documentation EM Family Medicine [address] [place] [address] Family Medicine, Physician [address] [place], [place] [phone] Social History Tobacco Use Types Packs/Day Years [...] on filedocumented in this encounter Care Teams Small Parts Shaper Operator Relationship Specialty Start Date End Date Aldo Hawthorne MD [address] [place] [address] JOVANA Rodriguez [phone] PCP - General 02/12/17 10/13/22 documented as of this encounter
== END 2025-06-22 11:37 | disposition home or self-care (01) ==
LOC: HO.HOS 11:10
PROVIDERS: Visit Provider Physical Medicine & Rehabilitation
DX: M50.222 Other cervical disc displacement at C5-C6 level (principal); M50.223 Other cervical disc displacement at C6-C7 level
CPT/HCPCS: 99213

== ENCOUNTER → 2025-06-22 11:10 | Outpatient (BNVA) | payer OTHER, SELFPAY | PROVIDERS: Visit Provider Physical Medicine & Rehabilitation | DX: M50.20 Other cervical disc displacement, unspecified cervical region (principal) | CPT/HCPCS: 99212 ==